=== PATIENT | female | born 1980 | race Caucasian/White ===

== ENCOUNTER 2017-11-29 16:53 | Emergency (ER) | payer BC, OTHER ==
--- OUTSIDE RECORDS SUMMARY | 2017-11-29 17:10 | XMS REPORT ---
:1980 External Reference #:[id number] Author Organization [facility] Address [address], [address] [place] [address] Phone [phone] Care Team Providers Name Role Phone [facility] Team Information Courtesy Driver Unavailable [facility] Primary Care Physician Unavailable Payers Type Date Identification Numbers Payment Provider Subscriber Commercial Policy Number: [id number] Minh Nadira Ann Group Number: [id number] [address] PayID: [id number] [place] [address] Problems Description No Information Family History Date Family Member(s) Problem(s) Comments Father Depression Father Hypertension Social History Type Date Description Comments Marital Status Lives With Family Diet Healthy, Well Balanced Occupation Resident Care Coordinator Work Status Currently Working Cigarette Use Quit ETOH Use Currently consumes alcohol socially Recreational Drug Use Denies Drug Use Smoking Patient is a former smoker Quit 2008 Daily Caffeine Current Caffeine User Allergies, Adverse Reactions, Alerts Date Description Reaction Status Severity Comments 11/13/2017 Dogs active 11/13/2017 Cats active Medications Medication Date Status Form Strength Qnty SIG Indications Ordering Provider No Active 11/13/2017 Active Unknown Medications Vital Signs Date Vital Result Comment 11/13/2017 BP Systolic Sitting Right Arm 118 mmHg BP Diastolic Sitting Right Arm 82 mmHg Body Temperature 97.8 F Heart Rate 75 /min reg Respiratory Rate 18 /min Height 67.75 inches 5'7.75" Weight 206.00 lb BMI (Body Mass Index) 31.6 kg/m2 BSA (Body Surface Area) 2.06 m2 Douglass body weight in kilograms 63 O2 % BldC Oximetry 98 % ra Results Test Date Test Result H/L Range Note Urine Culture 11/13/2017 Urine Culture URETHRAL GABRIELA 1 Quantity 10,000 - 50,000 <SEE NOTE> 1, 2 Urine Dipstick 11/13/2017 Ua Color yellow Yellow Ua Clarity clear Clear Ua Leuko 1+ 70 Ab/uL High Negative Ua Nitrite negative Negative Ua Urobilinogen 3.5 umol/L High 0.2 - 1.0 E.U./dL Ua Protein negative Negative Ua PH 6.0 Low 6.5-7.5 Ua Blood negative Negative Ua Specific [place] 1.015 1.010-1.030 Ua Ketones negative Negative Ua Bilirubin negative Negative Ua Glucose negative Negative 1 R82.90 2 10,000 - 50,000 CFU/mL Procedures Description No Information Plan of Care 11/13/2017 - Viky Sams, [id number] Generalized abdominal painR14.0 Abdominal distension (gaseous)N80.9 Endometriosis, unspecifiedReferral:Alvarez West MD, customer servicer/Phys/[id number] Unspecified abnormal findings in urineComments:pyuriaAllNew Medication:No Active Medications
[2017-11-29 17:16] VITALS: BP 105/77
[2017-11-29] MEDS ORDERED: Ketorolac INJ* 30 MG/ML 1 ML VIAL IM ONE (17:34)
[2017-11-29] MEDS ORDERED: Dexamethasone IV* 4 MG/ML 1 ML (4 MG) IM ONE (17:34)
[2017-11-29] MEDS ORDERED: Cyclobenzaprine TAB* 10 MG PO ONE (17:35)
--- NOTE | 2017-11-29 17:40 | UC ---
Back Pain HPI - HPI Summary HPI Summary: 37-year-old female with history of lower back pain presents with acute episode of lower back pain today - History of Current Complaint Chief Complaint: UCBackPain Stated Complaint: BACK PAIN Time Seen by Provider: 11/29/17 17:27 Hx Last Menstrual Period: 11/15/17 Onset/Duration: Gradual Onset Timing: Constant Severity Initially: Severe Severity Currently: Severe Pain Intensity: 9 Pain Scale Used: 0-10 Numeric Back Pain: Is Diffuse Character: Sharp Aggravating Factor(s): Movement Alleviating Factor(s): Rest Associated Signs And Symptoms: Positive: Negative. Negative: Swelling, Redness , Weakness, Numbness, Abdominal Pain, Bladder Incontinence, Bowel Incontinence - Allergies/Home Medications Allergies/Adverse Reactions: Allergies Allergy/AdvReac Type Severity Reaction Status Date / Time No Known Allergies Allergy Verified 11/29/17 17:13 Home Medications: Home Medications Ibuprofen TAB* [Advil TAB*] 800 mg PO ONCE 11/29/17 [History Confirmed 11/29/17] PMH/Surg Hx/FS Hx/Imm Hx - Additional Past Medical History Additional PMH: No history of diabetes Previously Healthy: Yes - Surgical History Surgical History: Yes Surgery Procedure, Year, and Place: dental. L arm surgery - Family History Known Family History: Positive: None, Hypertension - Social History Alcohol Use: Occasionally Substance Use Type: None Smoking Status (MU): Former Smoker Type: Cigarettes When Did the Patient Quit Smoking/Using Tobacco: 2007 Review of Systems All Other Systems Reviewed And Are Negative: Yes Physical Exam - Summary Physical Exam Summary: Gen: alert, in no acute distress HEENT: EOMI, normocephalic, atruamatic Neck: supple, no masses CV: Normal s1 s2, no murmurs Resp: normal breath sounds b/l GI: no tenderness, no masses Musculoskeletal: Diffuse tenderness of the lower back, no midline tenderness, no overlying skin lesions, positive straight leg test Skin: no rash Lymph: no lymphadenopathy Psych: appropriate affect, oriented Triage Information Reviewed: Yes Vital Signs: Initial Vital Signs Temp 36.6 C 11/29/17 17:10 Pulse 91 11/29/17 17:10 Resp 18 11/29/17 17:10 BP 105/77 11/29/17 17:10 Pulse Ox 100 11/29/17 17:10 Back Pain Course/Dx - Course Course Of Treatment: Given pain medications here, no weakness or numbness of the lower extremities, instructed to follow up with primary care physician and neurosurgeon for possible further evaluation. Agrees to and understands discharge instructions. Vital signs stable. Slightly slower but steady gait. - Differential Dx/Diagnosis Provider Diagnoses: lower back pain Discharge - Sign-Out/Discharge Documenting (check all that apply): Patient Departure All imaging exams completed and their final reports reviewed: No Studies - Discharge Plan Condition: Stable Disposition: HOME Prescriptions: traMADol TAB* [Ultram*] 25 mg PO TID #10 tab MDD 3 tabs Patient Education Materials: Back Pain (ED) Referrals: Elise Martínez PA [Physician Stationary Engineer Refrigeration] - Viky Sams PA [Primary Care Provider] - Sekou Crain MD [Medical Doctor] - Additional Instructions: PLEASE TAKE MEDICATIONS DIRECTED PLEASE REPORT TO THE ER FOR ANY WORSENING OR CONCERNING SYMPTOMS PLEASE MAKE AN APPOINTMENT TO BE SEEN BY A NEUROSURGEON AND PRIMARY CARE PHYSICIAN WITHIN 1-2 WEEKS - Billing Disposition and Condition Condition: STABLE Disposition: Home
== END 2017-11-29 19:18 | disposition home or self-care (01) ==
LOC: UCCORT 16:53
DX: M54.5 Low back pain (principal); Z87.891 Personal history of nicotine dependence
CPT/HCPCS: 96372; 99202; A9270-GY; G0463; J1100; J1885